=== PATIENT | male | born 1980 | race Two or more races ===

== ENCOUNTER 2021-01-13 22:21 | Emergency (ER) | payer MEDICAID, OTHER ==
[~2021-01-13] VITALS: Ht 157.5 cm; Wt 68.0 kg
[2021-01-13 22:32] VITALS: BP 153/92
[2021-01-13 23:29] LABS: Basophils # (auto) 0 10 ^3/uL (0-0.2); Basophils % (auto) 0.7 % (0.0-2.0); Eosinophils # (auto) 0.2 10 ^3/uL (0-0.8); Eosinophils % (auto) 3.2 % (0.0-7.0); Hematocrit 47.8 % (41.0-53.0); Lymphocytes # (auto) 2.9 10 ^3/uL (0.4-5.4); Lymphocytes % (auto) 42.6 % (10.0-50.0); Mean Corpuscular Hemoglobin 31.6 pg (28.0-32.0); Mean Corpuscular Hgb Conc. 35.6 g/dL (32.0-36.0); Mean Corpuscular Volume 88.7 fL (80.0-100.0); Monocytes # (auto) 0.5 10 ^3/uL (0-1.3); Neutrophils # (auto) 3.1 10 ^3/uL (1.6-8.6); Neutrophils % (auto) 45.5 % (37.0-80.0); Nucleated Red Blood Cells % 0.2 %; Red Blood Cells 5.39 10^6/uL (4.5-5.90); Red Cell Distribution Width 12.3 % (11.8-14.3); White Blood Cell 6.8 10^3/uL (4.4-10.8)
[2021-01-13 23:52] LABS: Albumin 3.8 g/dL (3.4-5.0); Anion Gap 7 (5-15); BUN/Creatinine Ratio 13.1; Blood Urea Nitrogen 11 mg/dL (7-18); Calcium 8.3 mg/dL (8.5-10.1); Carbon Dioxide 23 mmol/L (21-32); Chloride 106 mmol/L (98-107); GFR African American 129 mL/min; GFR Non-African American 107 mL/min; Glucose 252 mg/dL (74-106); Potassium 3.8 mmol/L (3.5-5.1); Sodium 136 mmol/L (136-145)
[2021-01-14 00:01] LABS: Alanine Aminotransferase 68 U/L (16-61); Alkaline Phosphatase 127 U/L (45-117); Aspartate Aminotransferase 25 U/L (15-37); Bilirubin, Total 0.3 mg/dL (0.2-1.0); Total Protein 7.7 g/dL (6.4-8.2)
== END 2021-01-14 05:42 | disposition home or self-care (01) ==
LOC: ER 22:22
DX: E11.65 Type 2 diabetes mellitus with hyperglycemia (principal); R51.9 Headache, unspecified
CPT/HCPCS: 36415; 80053; 82962; 84484; 85025

== ENCOUNTER 2022-04-16 20:52 | Emergency (ER) | payer MEDICAID ==
[~2022-04-16] VITALS: Ht 167.6 cm; Wt 85.3 kg
[2022-04-16 21:21] VITALS: BP 145/80
[2022-04-16] MEDS ORDERED: PROM1SOL4 PO (23:12)
[2022-04-16] MEDS ORDERED: OSEL75CA5 PO (23:12)
== END 2022-04-16 23:38 | disposition home or self-care (01) ==
LOC: ER 20:52
DX: J11.1 Influenza due to unidentified influenza virus with other respiratory manifestations (principal); R05.9 Cough, unspecified; R07.89 Other chest pain
CPT/HCPCS: 71045